=== PATIENT | female | born 2000 | race Two or more races ===

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

== ENCOUNTER 2021-07-29 17:21 | Emergency (ER) | payer BC, OTHER ==
[~2021-07-29] VITALS: Ht 157.5 cm; Wt 61.2 kg
[2021-07-29 20:54] VITALS: BP 133/84
== END 2021-07-30 02:02 | disposition home or self-care (01) ==
LOC: ER 17:21
DX: J06.9 Acute upper respiratory infection, unspecified (principal); M79.10 Myalgia, unspecified site; Z20.822 Contact with and (suspected) exposure to COVID-19
CPT/HCPCS: 36415; 87426